=== PATIENT | male | born 1965 | race Two or more races ===

== ENCOUNTER → 2017-12-19 | Day surgery (SDC) | payer OTHER ==
[~2017-12-19] MED LIST: BUPIVAC MPF-EPI 0.75%-1:200000 30 ML VIAL. INJ; EPINEPHrine 1 MG/ML VIAL INJ; LIDOCAINE 1% PF 2 ML VIAL. ID; LIDOCAINE 2% 100 MG/5 ML SYRINGE. IV; MORPHINE SULFATE 4 MG/ML DISP.SYRIN. IV; NEO/POLYMYX/DEXAMETH OPHTH OINTMENT 3.5GM TUBE.; ONDANSETRON PF 4 MG/2 ML VIAL. IV; PROCHLORPERAZINE 10 MG/2 ML VIAL. IV; PROPOFOL 20 ML IV; fentaNYL PF VIAL 100 MCG/2 ML VIAL IV
[2017-12-19] MEDS: IV RINGERS,LACTATED 1000ML 1,000 ML IV (10:29)
[2017-12-19] MEDS: LIDOCAINE 2% PF Vial for OR 5 ML VIAL. (12:57)
[2017-12-19] MEDS: PROPARACAINE 0.5% OPHTH SOLUTION 15ML BOTTLE. OS (12:57)
[2017-12-19] MEDS: BUPIVACAINE MPF 0.75% 30 ML VIAL. IJ (12:57)
[2017-12-19] MEDS: NEO/POLYMYX/DEXAMETH OPHTH OINTMENT 3.5GM TUBE. OS (12:57)
== END | disposition home or self-care (01) ==
LOC: SURG 09:37
DX: H02.402 Unspecified ptosis of left eyelid (principal)
CPT/HCPCS: 67908; J0171; J2704; J3490